=== PATIENT | female | born 1995 | race Caucasian/White ===

== ENCOUNTER 2018-02-16 11:19 | Inpatient (IN) | payer BC ==
[~2018-02-16] VITALS: Ht 165.1 cm; Wt 53.0 kg
[2018-02-16] MEDS ORDERED: SODIUM CHLORIDE FLUSH 10ML SYR IVF ONE (12:00)
[2018-02-16] MEDS ORDERED: LORazepam 2 MG/ML, 1ML ONE (12:02)
[2018-02-16] MEDS ORDERED: LORazepam 2 MG/ML, 1ML IVPush ONE (12:30)
[2018-02-16] MEDS ORDERED: LIDOCAINE-MPF 2%, 2ML ONE (12:57)
[2018-02-16] MEDS ORDERED: FENTANYL PF 100 MCG/2ML ONE ×2 (13:14)
[2018-02-16] MEDS ORDERED: SODIUM CHLORIDE FLUSH 10ML SYR IVF PRN (14:00)
[2018-02-16] MEDS ORDERED: MORPHINE SULFATE 4 MG/ML, 1ML IVPush PRN (14:00)
[2018-02-16] MEDS ORDERED: MORPHINE SULFATE 4 MG/ML, 1ML IVPush ONE (15:00)
[2018-02-16] MEDS ORDERED: MORPHINE SULFATE 4 MG/ML, 1ML ONE (15:06)
[2018-02-16 15:41] VITALS: BP 117/69
[2018-02-16] MEDS ORDERED: ONDANSETRON 2MG/ML, 2ML IVPush PRN (18:00)
[2018-02-16] MEDS ORDERED: BISACODYL 10 MG SUPP PR PRN (18:00)
[2018-02-16] MEDS: OXYcodone IR 5MG TABLET PO PRN (18:09)
[2018-02-16 18:17] LABS: BASOPHILS # (AUTO) 0.05 x10^3/uL (0-0.3); BASOPHILS % (AUTO) 1 % (0-1); EOSINOPHILS # (AUTO) 0.06 x10^3/uL (0-0.8); EOSINOPHILS % (AUTO) 1 % (1-7); LYMPHOCYTES # (AUTO) 1.82 x10^3/uL (1-6.1); LYMPHOCYTES % (AUTO) 21 % (22-44); MD NO; MEAN CORPUSCULAR HEMOGLOBIN 30.4 pg (27.0-34.8); MEAN CORPUSCULAR HGB CONC 33.4 g/dL (32.4-35.8); MEAN CORPUSCULAR VOLUME 91.1 fL (80-100); MEAN PLATELET VOLUME 10.7 fL (7.4-10.4); MONOCYTES # (AUTO) 0.44 x10^3/uL (0-1.4); MONOCYTES % (AUTO) 5 % (2-9); NEUTROPHILS # (AUTO) 6.36 x10^3/uL (1.8-8.0); NEUTROPHILS % (AUTO) 73 % (42-75); PLATELET COUNT 178 x10^3/uL (130-400); RED BLOOD COUNT 5.08 x10^6/uL (3.82-5.3)
[2018-02-16 18:25] LABS: ANION GAP 10 mmol/L (5-15); CALCIUM 9.3 mg/dL (8.5-10.1); CHLORIDE 106 mmol/L (98-107)
[2018-02-16 18:32] LABS: ALANINE AMINOTRANSFERASE 22 U/L (12-78); ALBUMIN 4.6 g/dL (3.4-5.0); CREATININE 0.83 mg/dL (0.55-1.02); TOTAL PROTEIN 8.3 g/dL (6.4-8.2)
[2018-02-16 18:36] LABS: ALKALINE PHOSPHATASE 100 U/L (45-117); BILIRUBIN,TOTAL 1.1 mg/dL (0.2-1.0)
[2018-02-16] MEDS: ACETAMINOPHEN 325 MG TABLET PO PRN (19:48)
[2018-02-16] MEDS: KETOROLAC 30 MG/1 ML IV PRN (19:48)
[2018-02-16 20:00] VITALS: BP 108/68
[2018-02-16] MEDS: SODIUM CHLORIDE FLUSH 10ML SYR IVF SCH (21:00)
[2018-02-17 03:04] VITALS: BP 95/59
[2018-02-17] MEDS: KETOROLAC 30 MG/1 ML IV PRN (06:03)
[2018-02-17] MEDS: ACETAMINOPHEN 325 MG TABLET PO PRN ×2 (06:04→16:20)
[2018-02-17 07:10] VITALS: BP 97/59
[2018-02-17] MEDS: SENNA/DOCUSATE TABLET PO SCH (08:13)
[2018-02-17] MEDS: SODIUM CHLORIDE FLUSH 10ML SYR IVF SCH ×2 (08:14→20:34)
[2018-02-17] MEDS: POTASSIUM CHLORIDE 20 MEQ TAB.ER.PRT PO SCH ×2 (10:17→13:51)
[2018-02-17 14:10] VITALS: BP 111/72
[2018-02-17 20:00] VITALS: BP 102/65
[2018-02-18 00:15] VITALS: BP 117/72
[2018-02-18] MEDS: ACETAMINOPHEN 325 MG TABLET PO PRN (00:15)
[2018-02-18 05:16] LABS: INTERNATIONAL NORMALIZED RATIO 1.11 (0.93-1.1); PROTHROMBIN TIME 11.4 Seconds (9.6-11.5)
[2018-02-18 05:18] LABS: ALBUMIN 3.5 g/dL (3.4-5.0); ANION GAP 6 mmol/L (5-15); CALCIUM 8.7 mg/dL (8.5-10.1); CHLORIDE 109 mmol/L (98-107)
[2018-02-18 05:21] LABS: ALANINE AMINOTRANSFERASE 15 U/L (12-78); ALKALINE PHOSPHATASE 75 U/L (45-117); BILIRUBIN,TOTAL 0.5 mg/dL (0.2-1.0); CREATININE 0.93 mg/dL (0.55-1.02); TOTAL PROTEIN 6.4 g/dL (6.4-8.2)
[2018-02-18 05:25] LABS: BASOPHILS # (AUTO) 0.04 x10^3/uL (0-0.3); BASOPHILS % (AUTO) 1 % (0-1); EOSINOPHILS # (AUTO) 0.18 x10^3/uL (0-0.8); EOSINOPHILS % (AUTO) 2 % (1-7); LYMPHOCYTES # (AUTO) 2.49 x10^3/uL (1-6.1); LYMPHOCYTES % (AUTO) 34 % (22-44); MD NO; MEAN CORPUSCULAR HEMOGLOBIN 30.8 pg (27.0-34.8); MEAN CORPUSCULAR HGB CONC 34.1 g/dL (32.4-35.8); MEAN CORPUSCULAR VOLUME 90.3 fL (80-100); MEAN PLATELET VOLUME 9.7 fL (7.4-10.4); MONOCYTES % (AUTO) 7 % (2-9); NEUTROPHILS # (AUTO) 4.03 x10^3/uL (1.8-8.0); NEUTROPHILS % (AUTO) 56 % (42-75); PLATELET COUNT 136 x10^3/uL (130-400); RED BLOOD COUNT 4.14 x10^6/uL (3.82-5.3); RED CELL DISTRIBUTION WIDTH 13.1 % (9.6-15.2)
[2018-02-18 07:39] VITALS: BP 100/63
[2018-02-18] MEDS: SODIUM CHLORIDE FLUSH 10ML SYR IVF SCH ×2 (08:48→20:20)
[2018-02-18] MEDS: SENNA/DOCUSATE TABLET PO SCH (08:49)
[2018-02-18 14:46] VITALS: BP 110/73
[2018-02-18 14:50] LABS: HCG UR SG 1.021 (1.003-1.030)
[2018-02-18] MEDS ORDERED: MIDAZOLAM 1 MG/ML, 2ML ONE (15:23)
[2018-02-18] MEDS ORDERED: FENTANYL PF 100 MCG/2ML ONE ×3 (15:23)
[2018-02-18] MEDS ORDERED: ROCURONIUM 10MG/ML,5ML ONE (15:25)
[2018-02-18] MEDS ORDERED: PROPOFOL 10 MG/ML, 20ML ONE (15:25)
[2018-02-18] MEDS ORDERED: ONDANSETRON 2MG/ML, 2ML ONE (15:26)
[2018-02-18] MEDS ORDERED: GLYCOPYRROLATE 0.4 MG/2 ML, 2ML ONE (15:26)
[2018-02-18] MEDS ORDERED: NEOSTIGMINE 1 MG/ML, 10ML ONE (15:26)
[2018-02-18] MEDS ORDERED: DEXAMETHASONE 4 MG/ML, 1ML ONE ×2 (15:26)
[2018-02-18] MEDS ORDERED: CEFAZOLIN 1,000 MG ONE ×2 (15:27)
[2018-02-18] MEDS ORDERED: WATER-INJECTION,STERILE 10 ML IV ONE (15:27)
[2018-02-18] MEDS ORDERED: ACETAMINOPHEN 500 MG TABLET PO ONE (16:00)
[2018-02-18] MEDS ORDERED: GABAPENTIN 300 MG CAPSULE PO ONE ×2 (16:00)
[2018-02-18] MEDS ORDERED: ONDANSETRON 2MG/ML, 2ML IV PRN ×2 (16:30→20:00)
[2018-02-18] MEDS ORDERED: PROMETHAZINE 12.5 MG SUPP PR PRN (16:30)
[2018-02-18] MEDS ORDERED: LABETALOL 5MG/ML, 20ML IV PRN (16:30)
[2018-02-18] MEDS ORDERED: ACETAMINOPHEN 325 MG TABLET PO PRN (16:30)
[2018-02-18] MEDS ORDERED: PROMETHAZINE 25 MG SUPP PR PRN (16:30)
[2018-02-18] MEDS ORDERED: SODIUM CHLORIDE 0.9% IVPB ONE (16:30)
[2018-02-18] MEDS ORDERED: FENTANYL PF 100 MCG/2ML IV PRN (16:30)
[2018-02-18] MEDS ORDERED: ONDANSETRON ODT 8 MG PO PRN (16:30)
[2018-02-18] MEDS ORDERED: MORPHINE SULFATE 4 MG/ML, 1ML IVPush PRN (16:30)
[2018-02-18] MEDS ORDERED: hydrALAzine 20 MG/ML, 1ML IV PRN (16:30)
[2018-02-18] MEDS ORDERED: HYDROmorphone 1 MG/ML, 1ML IV PRN (16:30)
[2018-02-18] MEDS ORDERED: PROMETHAZINE 25 MG/ML, 1ML IV PRN (16:30)
[2018-02-18] MEDS ORDERED: DOXYCYCLINE IVPB ONE (16:30)
[2018-02-18] MEDS ORDERED: EPINEPHRINE 1 MG/ML, 1ML ONE (16:31)
[2018-02-18] MEDS ORDERED: BUPIVACAINE/PF 0.5% ONE (16:31)
[2018-02-18] MEDS ORDERED: PHENYLEPHRINE 10 MG/ML ONE (16:40)
[2018-02-18] MEDS ORDERED: BUPIVACAINE/PF 0.5% INFIL ONE (17:09)
[2018-02-18] MEDS ORDERED: EPINEPHRINE 1 MG/ML, 1ML INFIL ONE (17:10)
[2018-02-18] MEDS ORDERED: GLYCOPYRROLATE 0.2MG/1ML, 5ML ONE (17:17)
[2018-02-18] MEDS ORDERED: SUGAMMADEX 200 MG/2 ML IVPush ONE (17:35)
[2018-02-18] MEDS ORDERED: MEPERIDINE/PF 50 MG/ML ONE (17:52)
[2018-02-18] MEDS ORDERED: OXYcodone 5 MG/5 ML ORAL.SOL UDC ONE (17:52)
[2018-02-18] MEDS: MEPERIDINE/PF 25MG/0.5ML IVPush PRN ×3 (17:55→19:21)
[2018-02-18] MEDS: OXYcodone 5 MG/5 ML ORAL.SOL UDC PO PRN ×2 (18:00→19:21)
[2018-02-18 19:50] VITALS: BP 120/78
[2018-02-18] MEDS ORDERED: HYDROcodone/APAP 5/325 TABLET PO PRN (20:00)
[2018-02-18] MEDS: POTASSIUM CHLORIDE 20 MEQ in D5%-0.45% NACL 1,000 ML IV SCH (20:19)
[2018-02-18] MEDS: CEFAZOLIN PMX 1GM/50ML 50 ML IVPB SCH (20:19)
[2018-02-18] MEDS: ACETAMINOPHEN 500 MG TABLET PO SCH (20:19)
[2018-02-19 00:32] VITALS: BP 120/78
[2018-02-19] MEDS: ACETAMINOPHEN 500 MG TABLET PO SCH ×4 (02:37→21:15)
[2018-02-19] MEDS: CEFAZOLIN PMX 1GM/50ML 50 ML IVPB SCH (04:35)
[2018-02-19 04:38] VITALS: BP 132/84
[2018-02-19 05:46] LABS: ALBUMIN 3.5 g/dL (3.4-5.0); ANION GAP 8 mmol/L (5-15); CALCIUM 8.8 mg/dL (8.5-10.1); CHLORIDE 105 mmol/L (98-107)
[2018-02-19 05:50] LABS: ALANINE AMINOTRANSFERASE 18 U/L (12-78); ALKALINE PHOSPHATASE 77 U/L (45-117); BILIRUBIN,TOTAL 0.9 mg/dL (0.2-1.0); CREATININE 0.85 mg/dL (0.55-1.02); TOTAL PROTEIN 6.7 g/dL (6.4-8.2)
[2018-02-19 05:52] LABS: BASOPHILS # (AUTO) 0.01 x10^3/uL (0-0.3); BASOPHILS % (AUTO) 0 % (0-1); EOSINOPHILS % (AUTO) 0 % (1-7); LYMPHOCYTES # (AUTO) 0.58 x10^3/uL (1-6.1); LYMPHOCYTES % (AUTO) 7 % (22-44); MD NO; MEAN CORPUSCULAR HEMOGLOBIN 30.8 pg (27.0-34.8); MEAN CORPUSCULAR HGB CONC 34.2 g/dL (32.4-35.8); MEAN CORPUSCULAR VOLUME 90.1 fL (80-100); MEAN PLATELET VOLUME 10.1 fL (7.4-10.4); MONOCYTES # (AUTO) 0.37 x10^3/uL (0-1.4); MONOCYTES % (AUTO) 4 % (2-9); NEUTROPHILS # (AUTO) 7.55 x10^3/uL (1.8-8.0); NEUTROPHILS % (AUTO) 89 % (42-75); PLATELET COUNT 152 x10^3/uL (130-400); RED BLOOD COUNT 4.32 x10^6/uL (3.82-5.3); RED CELL DISTRIBUTION WIDTH 12.7 % (9.6-15.2)
[2018-02-19 07:17] VITALS: BP 108/73
[2018-02-19] MEDS: SENNA/DOCUSATE TABLET PO SCH (08:12)
[2018-02-19] MEDS: SODIUM CHLORIDE FLUSH 10ML SYR IVF SCH ×2 (08:12→21:00)
[2018-02-19] MEDS: POTASSIUM CHLORIDE 20 MEQ in D5%-0.45% NACL 1,000 ML IV SCH (11:09)
[2018-02-19] MEDS: OXYcodone IR 5MG TABLET PO PRN ×3 (12:56→23:59)
[2018-02-19 13:05] VITALS: BP 109/75
[2018-02-19 19:18] VITALS: BP 104/67
[2018-02-20] MEDS: POTASSIUM CHLORIDE 20 MEQ in D5%-0.45% NACL 1,000 ML IV SCH ×2 (00:56→15:37)
[2018-02-20 00:58] VITALS: BP 92/55
[2018-02-20] MEDS: ACETAMINOPHEN 500 MG TABLET PO SCH ×4 (03:18→21:02)
[2018-02-20] MEDS: OXYcodone IR 5MG TABLET PO PRN ×3 (06:51→21:03)
[2018-02-20 07:53] VITALS: BP 110/58
[2018-02-20] MEDS: SENNA/DOCUSATE TABLET PO SCH (09:11)
[2018-02-20] MEDS: POLYETHYLENE GLYCOL 17 GM PACKET PO PRN (09:11)
[2018-02-20] MEDS: SODIUM CHLORIDE FLUSH 10ML SYR IVF SCH ×2 (09:12→21:00)
[2018-02-20 12:23] VITALS: BP 100/65
[2018-02-20 20:03] VITALS: BP 120/89
[2018-02-21 01:57] VITALS: BP 98/60
[2018-02-21] MEDS: ACETAMINOPHEN 500 MG TABLET PO SCH ×2 (03:25→09:00)
[2018-02-21] MEDS: POTASSIUM CHLORIDE 20 MEQ in D5%-0.45% NACL 1,000 ML IV SCH (04:53)
[2018-02-21 05:40] LABS: ANION GAP 5 mmol/L (5-15); CALCIUM 8.7 mg/dL (8.5-10.1); CHLORIDE 106 mmol/L (98-107); CREATININE 0.81 mg/dL (0.55-1.02)
[2018-02-21 07:50] VITALS: BP 112/79
[2018-02-21] MEDS: SENNA/DOCUSATE TABLET PO SCH (08:19)
[2018-02-21] MEDS: OXYcodone IR 5MG TABLET PO PRN (08:19)
[2018-02-21] MEDS: POLYETHYLENE GLYCOL 17 GM PACKET PO PRN (08:19)
[2018-02-21] MEDS: SODIUM CHLORIDE FLUSH 10ML SYR IVF SCH (08:25)
[2018-02-21] MEDS ORDERED: OXYC5TAB3 PO (09:38)
[2018-02-21] MEDS ORDERED: IBUP-1222 PO ×2 (09:40→13:08)
[2018-02-21] MEDS ORDERED: ACET500T71 PO (09:40)
[2018-02-21 12:40] VITALS: BP 105/71
[2018-02-21] MEDS ORDERED: OXYC5CAP2 PO (13:04)
[2018-02-21] MEDS ORDERED: ACET-76 PO (13:07)
== END 2018-02-21 13:24 | disposition home or self-care (01) | DRG 165 ==
LOC: ED 13:54 → EDIP 13:55 → ED 14:23 → 4NOR 15:16 → DCLOUNGE 02-21 13:10
PROVIDERS: ADMIT Surgery; ATTEND Internal Medicine
PROC: 0W9930Z Drainage of Right Pleural Cavity with Drainage Device, Percutaneous Approach (ICD-10-PCS; 2018-02-16)
PROC: 0B5N4ZZ Destruction of Right Pleura, Percutaneous Endoscopic Approach (ICD-10-PCS; 2018-02-18)
PROC: 3E0L4GC Introduction of Other Therapeutic Substance into Pleural Cavity, Percutaneous Endoscopic Approach (ICD-10-PCS; 2018-02-18)
PROC: 0BBC4ZZ Excision of Right Upper Lung Lobe, Percutaneous Endoscopic Approach (ICD-10-PCS; principal; 2018-02-18 16:30)
PROC: 0W9940Z Drainage of Right Pleural Cavity with Drainage Device, Percutaneous Endoscopic Approach (ICD-10-PCS; 2018-02-18 16:30)
DX: J93.83 Other pneumothorax (principal); Z83.3 Family history of diabetes mellitus; J43.9 Emphysema, unspecified
CPT/HCPCS: 32557; 36415; 99285; J3490; 32551; 71045; 71260; 80048; 80053; 81025; 83735; 84100; 84703; 85014; 85018; 85025; 85610; 88307; 93005; 99156; 99157; C1729; J0171; J0690; J1100; J1885; J2175; J2250; J2270; J2405; J2704; J2710; J3010; J3480; C1760; J2060; J2370